=== PATIENT | male | born 1945 | race Caucasian/White ===

== ENCOUNTER 2020-12-09 09:00 | Emergency (ER) | payer MEDICARE ==
[~2020-12-09] VITALS: Ht 182.9 cm; Wt 99.8 kg
[~2020-12-09 09:00] MED LIST: ASPIRIN325 PO; CARVEDILOL25 MG PO; DIOVAN160 MG PO; FISH OIL 1,0001 EAC5 PO; GLUCOPHAGE XR750 MG PO; MULTIVITAMINS1 EAC7 PO; TRAMADOL 50 MG50 MG PO; VITAMIN D-32000 UNIT PO
[2020-12-09] MEDS ORDERED: ASA81BEC PO (09:35)
[2020-12-09] MEDS ORDERED: TORSEMIDE20 MG PO (09:36)
[2020-12-09] MEDS ORDERED: JARDIANCE10 MG PO (09:37)
[2020-12-09] MEDS ORDERED: NEURONTIN 300M300 M2 PO (09:37)
[2020-12-09] MEDS ORDERED: LANTUS SUBQ (09:37)
[2020-12-09] MEDS ORDERED: PLAVIX 75 MG TA75 MG PO (09:37)
[2020-12-09] MEDS ORDERED: ENTRESTO 24 MG1 EACH PO (09:37)
[2020-12-09] MEDS ORDERED: FLECAINIDE ACE150 MG PO (09:38)
[2020-12-09] MEDS ORDERED: CARVEDILOL25 MG PO (09:38)
[2020-12-09] MEDS ORDERED: PERCOCET 10-321 EAC1 PO (09:38)
[2020-12-09] MEDS ORDERED: FLONASE 0.05%50 MCG NARES (09:38)
[2020-12-09] MEDS ORDERED: DESYREL150 MG PO (09:38)
[2020-12-09] MEDS ORDERED: VITAMIN B-121000 MC2 SUBLING (09:38)
[2020-12-09 09:55] LABS: CALCIUM 8.5 mg/dL (8.5-10.1); CREATININE 1.7 mg/dL (0.6-1.3)
[2020-12-09 10:05] LABS: ALBUMIN 3.6 g/dL (3.4-5.0); MAGNESIUM 2.3 mg/dL (1.8-2.4); TOTAL BILIRUBIN 0.8 mg/dL (<0.1-1.0); TOTAL PROTEIN 7.1 g/dL (6.4-8.2)
--- NOTE | 2020-12-09 10:08 | EKG ---
[place] [address] ELECTROCARDIOGRAM REPORT Name: SOCORROJEREMY Room: [facility]#: [id number] Admission: 12/09/20 Attend Phys: Discharge: Date of : 45 Date of Service: 12/09/20904 Report #: [id number] THIS REPORT FOR: //name// [facility] ED Test Date: 2020-12-09 Test Time: 09:05:01 Pat Name: JEREMY QUINTANILLA Department: Room: Gender: Occupational Medicine Specialist: [facility] : 1945 Requested By: Camron Busby Order Number: [id number] MD: Augie Watkins Measurements Intervals [place] Rate: 58 P: -44 [place]: 55 QRS: 161 QRSD: 217 T: 96 QT: 529 QTc: 520 Interpretive Statements Atrial-ventricular dual-paced complexes vpc's No further analysis attempted due to paced rhythm No previous ECG available for comparison Electronically Signed On 12-09-2020 10:07:51 CDT by Augie Watkins [email or web address] <ELECTRONICALLY SIGNED> By: Augie Watkins MD, [facility] 12/09/20 1007 09 09 Augie Watkins MD, [facility] /EPI
[2020-12-09 10:21] LABS: PLATELET ESTIMATE ADEQUATE
[2020-12-09 10:28] LABS: ABSOLUTE LYMPHOCYTES 2.1 thou/uL (0.8-5.3); ABSOLUTE NEUTROPHILS 4.9 thou/uL (1.6-8.1); HEMATOCRIT 47.1 % (42.0-52.0); HEMOGLOBIN 15.6 gm/dL (14.0-18.0); MCH 29.5 pg (26.0-34.0); MCV 89.2 fL (80.0-100.0); PLATELET COUNT* 107 thou/uL (150-400); RBC 5.28 mil/uL (4.50-6.00); RDW-CV 13.9 % (10.5-14.5); WBC 7.5 thou/uL (4.0-11.0)
[2020-12-09 10:29] LABS: ABSOLUTE EOSINOPHILS 0.3 thou/uL (0.0-0.7); ABSOLUTE MONOCYTES 0.2 thou/uL (0.0-1.2)
[2020-12-09 11:01] VITALS: BP 122/60
== END 2020-12-09 11:02 | disposition home or self-care (01) ==
LOC: M.ERS 09:00
PROVIDERS: Emergency Medicine Emergency Medical Services
DX: I47.2 Ventricular tachycardia (principal); Z95.0 Presence of cardiac pacemaker; Z88.8 Allergy status to other drugs, medicaments and biological substances